=== PATIENT | male | born 1970 | race Caucasian/White ===

== ENCOUNTER 2023-05-17 08:04 | Emergency (ER) | payer BC ==
[2023-05-17 08:38] LABS: Absolute Lymphocytes (CBC) 1.7 K/uL (0.7-4.9); Hematocrit 47.4 % (39.6-49.0); MCV 93.8 fL (80-100); MPV 8.2 fL (7.6-11.3); RBC Red Blood Cell Count 5.06 M/uL (4.33-5.43)
[2023-05-17 08:48] LABS: Albumin 3.8 g/dL (3.4-5.0); Potassium 3.7 mEq/L (3.5-5.1); Protein, Total 7.2 g/dL (6.4-8.2)
--- NOTE | 2023-05-17 09:54 | RAD REPORT ---
EXAM DESCRIPTION: US - Abdomen Exam Limited - 05/17/2023 9:15 am CLINICAL HISTORY: Abdominal pain. COMPARISON: None. FINDINGS: Small echogenic structure gallbladder neck. Definite shadowing not seen. Small to moderate amount of gallbladder sludge The biliary tree is normal caliber. Mild gallbladder distention IMPRESSION: Small to moderate amount of gallbladder sludge. Small echogenic structure the gallbladder neck. This could represent a stone which did not shadow sec ondary to a combination of body habitus and small size. Mild gallbladder distention
[2023-05-17 10:11] LABS: Specific Gravity 1.025 (1.005-1.030); Urine Bacteria None Seen /HPF (<20); Urine Bilirubin NEGATIVE (Negative); Urine Blood Negative (Negative); Urine Clarity Clear (Clear); Urine Color Light-Yellow (Yellow); Urine Glucose NEGATIVE (Negative); Urine Mucus Slight /HPF (None Seen); Urine Protein TRACE (Negative); Urine RBC <5 /HPF (None Seen); Urine Urobilinogen Normal (Normal); Urine pH 6.5 (5.0-7.0)
--- NOTE | 2023-05-17 10:21 | EDPHYS ---
Physician Documentation [facility] Name: Zaid Yost Age: 52 yrs Sex: Male : 1970 Arrival Date: 05/17/2023 Time: 08:04 Bed 4 Private MD: ED Physician Neptali Luevano HPI: 05/17 08:46 This 52 yrs old Male presents to ER via Ambulatory with complaints of Abdominal Pain. sp3 08:46 52-year-old male with no significant past medical history, obesity who presents today sp3 ED with chief complaint right upper quadrant abdominal pain with a maximum of 4/10 intensity over the last 48 hours. He also reports increased belching and diaphoresis upon exertion. No prior cardiac history and he denies chest pain or shortness of breath. On review of systems, he denies fever, headache, neck pain, back pain, lower abdominal pain, vomiting or diarrhea, rash, known sick contacts, possible bad food, or any other signs or symptoms on ROS at this time.. Historical: - Allergies: 08:14 No Known Allergies; aa5 - Home Meds: 08:14 None [Active]; aa5 - PMHx: 08:14 None; aa5 - PSHx: 08:14 Appendectomy; aa5 - Immunization history:: Adult Immunizations unknown. - Social history:: Smoking status: Patient denies any tobacco usage or history of. ROS: 08:47 Constitutional: Negative for fever, chills, and weight loss, Eyes: Negative for injury, sp3 pain, redness, and discharge, ENT: Negative for injury, pain, and discharge, Neck: Negative for injury, pain, and swelling, Cardiovascular: Negative for chest pain, palpitations, and edema, Respiratory: Negative for shortness of breath, cough, wheezing, and pleuritic chest pain, Back: Negative for injury and pain, MS/Extremity: Negative for injury and deformity, Skin: Negative for injury, rash, and discoloration, Neuro: Negative for headache, weakness, numbness, tingling, and seizure, Psych: Negative for depression, anxiety, suicide ideation, homicidal ideation, and hallucinations. 08:47 All other systems are negative. Exam: 08:47 Constitutional: This is a well developed, well nourished patient who is awake, alert, sp3 and in no acute distress. Head/Face: Normocephalic, atraumatic. Eyes: Pupils equal round and reactive to light, extra-ocular motions intact. Lids and lashes normal. Conjunctiva and sclera are non-icteric and not injected. Cornea within normal limits. Periorbital areas with no swelling, redness, or edema. Neck: Trachea midline, no thyromegaly or masses palpated, and no cervical lymphadenopathy. Supple, full range of motion without nuchal rigidity, or vertebral point tenderness. No Meningismus. Chest/axilla: Normal chest wall appearance and motion. Nontender with no deformity. No lesions are appreciated. Cardiovascular: Regular rate and rhythm with a normal S1 and S2. No gallops, murmurs, or rubs. Normal PMI, no JVD. No pulse deficits. Respiratory: Lungs have equal breath sounds bilaterally, clear to auscultation and percussion. No rales, rhonchi or wheezes noted. No increased work of breathing, no retractions or nasal flaring. Abdomen/GI: Soft, non-tender, with normal bowel sounds. No distension or tympany. No guarding or rebound. No evidence of tenderness throughout. Back: No spinal tenderness. No costovertebral tenderness. Full range of motion. Skin: Warm, dry with normal turgor. Normal color with no rashes, no lesions, and no evidence of cellulitis. MS/ Extremity: Pulses equal, no cyanosis. Neurovascular intact. Full, normal range of motion. Neuro: Awake and alert, GCS 15, oriented to person, place, time, and situation. Cranial nerves II-XII grossly intact. Motor strength 5/5 in all extremities. Sensory grossly intact. Cerebellar exam normal. Normal gait. Psych: Awake, alert, with orientation to person, place and time. Behavior, mood, and affect are within normal limits. 08:47 ECG was reviewed by the Attending Physician. EKG demonstrates normal sinus rhythm at 87 bpm with normal intervals, normal QRS, normal axis, nonspecific diffuse ST/T-segment changes with inverted T waves inferiorly without any evidence of acute ischemia. Vital Signs: 08:10 BP 159 / 92; Pulse 90; Resp 18 S; Temp 97.1(TE); Pulse Ox 96% on R/A; Weight 161.03 kg aa5 (R); Height 6 ft. 7 in. (R); 09:13 BP 153 / 83; Pulse 73; Resp 19 S; Pulse Ox 93% on R/A; kc6 10:13 BP 134 / 86; Pulse 88; Resp 19 S; Pulse Ox 93% on R/A; kc6 08:10 Body Mass Index 39.99 (161.03 kg, 200.66 cm) aa5 MDM: 08:21 Patient medically screened. sp3 08:48 Data reviewed: vital signs, nurses notes, lab test result(s), EKG, radiologic studies. sp3 ED course: 52-year-old male with vague symptoms right upper quad abdominal pain that are now fully resolved. Differential diagnosis includes biliary pathology including cholelithiasis, cholecystitis, pancreatitis, and a lower extent cardiac pathology including ACS. EKG demonstrates no acute abnormalities. Will assess with laboratory values including a troponin and a right upper quadrant ultrasound. No medication intervention indicated as patient is not having any pain currently.. 10:19 ED course: Discussed ultrasound results with patient including probability of future sp3 cholelithiasis and cholecystitis. Current sludge demonstrates no acute pathology with no gallbladder wall thickening or pericholecystic fluid. LFTs are normal including biliary labs. WBC is also normal. I also educated patient on prediabetes as his blood sugar was at 167. Also counseled patient on weight loss. Patient to follow-up with his PCP for further care.. 05/17 08:21 Order name: CBC with Diff; Complete Time: 10:15 05/17 08:21 Order name: CMP; Complete Time: 10:15 05/17 08:21 Order name: Lipase; Complete Time: 10:05/17 08:21 Order name: Urinalysis w/ reflexes; Complete Time: 10:05/17 08:38 Order name: Troponin High Sensitivity; Complete Time: 10:05/17 08:38 Order name: US Abdomen Limited: RUQ / GB; Complete Time: 10:15 05/17 08:38 Order name: EKG; Complete Time: 08:38 3 05/17 08:21 Order name: IV Saline Lock; Complete Time: 08:22 3 05/17 08:21 Order name: Labs collected and sent; Complete Time: 08: 3 05/17 08:38 Order name: EKG - Nurse/Tech; Complete Time: 08:45 sp3 Administered Medications: No medications were administered Disposition Summary: 05/17/23 10:20 Discharge Ordered Location: Home sp3 Condition: Stable sp3 Diagnosis - Abdominal pain, gallbladder sludge sp3 Discharge Instructions: - Discharge Summary Sheet sp3 - Gallbladder Eating Plan sp3 Forms: - Medication Reconciliation Form sp3 - Thank You Letter sp3 - Antibiotic Education sp3 - Prescription Opioid Use sp3 Signatures: Dispatcher [employer] Ly Reno RN RN aa5 Neptali Luevano MD MD sp3 Corrections: (The following items were deleted from the chart) 08:47 08:22 Test, Urine+[id number].LAB.BRZ ordered. EDMS EDMS
--- NOTE | 2023-05-17 10:21 | ER ---
Nurse's Notes [facility] Name: Zaid Yost Age: 52 yrs Sex: Male : 1970 Arrival Date: 05/17/2023 Time: 08:04 Bed 4 Private MD: Diagnosis: Abdominal pain, gallbladder sludge Presentation: 05/17 08:10 Chief complaint: Patient states: right sided abd pain x 2 days ago, reports some nausea aa5 and vomiting. 08:10 Coronavirus screen: At this time, the client does not indicate any symptoms associated aa5 with coronavirus-19. Ebola Screen: Patient denies travel to an Ebola-affected area in the 21 days before illness onset. Initial Sepsis Screen: Does the patient meet any 2 criteria? No. Patient's initial sepsis screen is negative. Does the patient have a suspected source of infection? No. Patient's initial sepsis screen is negative. Risk Assessment: Do you want to hurt yourself or someone else? Patient reports no desire to harm self or others. Onset of symptoms was April 2023. 08:10 Acuity: PEPE 3 aa5 08:10 Method Of Arrival: Ambulatory aa5 Historical: - Allergies: 08:14 No Known Allergies; aa5 - Home Meds: 08:14 None [Active]; aa5 - PMHx: 08:14 None; aa5 - PSHx: 08:14 Appendectomy; aa5 - Immunization history:: Adult Immunizations unknown. - Social history:: Smoking status: Patient denies any tobacco usage or history of. Screenin:20 [facility] ED Fall Risk Assessment (Adult) History of falling in the last 3 months, kc6 including since admission No falls in past 3 months (0 pts) Confusion or Disorientation No (0 pts) Intoxicated or Sedated No (0 pts) Impaired Gait No (0 pts) Mobility Assist Device Used No (0 pt) Altered Elimination No (0 pt) Score/Fall Risk Level 0 - 2 = Low Risk Oriented to surroundings, Maintained a safe environment, Educated pt \T\ family on fall prevention, incl call for assistance when getting out of bed, Assessed \T\ reinforced patient's understanding of fall precautions, Hourly rounding (assess needs \T\ fall precautionary measures) done. Abuse screen: Denies threats or abuse. Denies injuries from another. Nutritional screening: No deficits noted. Tuberculosis screening: No symptoms or risk factors identified. Assessment: 08:18 General: Appears in no apparent distress. comfortable, Behavior is calm, cooperative, kc6 appropriate for age. Pain: Complains of pain in right upper quadrant and right lower quadrant Pain does not radiate. Pain currently is 4 out of 10 on a pain scale. Quality of pain is described as aching, dull, Is continuous. Neuro: Level of Consciousness is awake, alert, obeys commands, Oriented to person, place, time, situation, Appropriate for age. Respiratory: Airway is patent Trachea midline Respiratory effort is even, unlabored, Respiratory pattern is regular, symmetrical. GI: Abdomen is round non-distended, Bowel sounds present X 4 quads. Abd is soft X 4 quads Abdomen is tender to palpation in right upper quadrant and right lower quadrant Reports nausea, Patient currently denies diarrhea, vomiting. : No signs and/or symptoms were reported regarding the genitourinary system. EENT: No signs and/or symptoms were reported regarding the EENT system. Derm: No signs and/or symptoms reported regarding the dermatologic system. Skin is intact, Skin is pink, warm \T\ dry. Musculoskeletal: No signs and/or symptoms reported regarding the musculoskeletal system. Circulation, motion, and sensation intact. Capillary refill < 3 seconds, Range of motion: intact in all extremities. 09:13 Reassessment: Patient appears in no apparent distress at this time. No changes from kc6 previously documented assessment. Patient and/or family updated on plan of care and expected duration. Pain level reassessed. Patient is alert, oriented x 3, equal unlabored respirations, skin warm/dry/pink. 10:07 Reassessment: Patient appears in no apparent distress at this time. No changes from kc6 previously documented assessment. Patient and/or family updated on plan of care and expected duration. Pain level reassessed. Patient is alert, oriented x 3, equal unlabored respirations, skin warm/dry/pink. Vital Signs: 08:10 BP 159 / 92; Pulse 90; Resp 18 S; Temp 97.1(TE); Pulse Ox 96% on R/A; Weight 161.03 kg aa5 (R); Height 6 ft. 7 in. (R); 09:13 BP 153 / 83; Pulse 73; Resp 19 S; Pulse Ox 93% on R/A; kc6 10:13 BP 134 / 86; Pulse 88; Resp 19 S; Pulse Ox 93% on R/A; kc6 08:10 Body Mass Index 39.99 (161.03 kg, 200.66 cm) aa5 ED Course: 08:05 Patient arrived in ED. im 08:10 Adrianne Walter, RN is Primary Nurse. kc6 08:10 Arm band placed on. aa5 08:14 Neptali Luevano MD is Attending Physician. sp3 08:18 Triage completed. aa5 08:20 Patient has correct armband on for positive identification. Bed in low position. Call kc6 light in reach. Side rails up X 1. 08:20 Inserted saline lock: 20 gauge in left antecubital area, using aseptic technique. Blood kc6 collected. 09:10 US Abdomen Limited: RUQ / GB In Process Unspecified. EDMS 10:02 Urinalysis w/ reflexes Sent. em1 11:08 No provider procedures requiring assistance completed. IV discontinued, intact, kc6 bleeding controlled, No redness/swelling at site. Pressure dressing applied. Administered Medications: No medications were administered Medication: 11:08 VIS not applicable for this client. kc6 Outcome: 10:20 Discharge ordered by . sp3 11:08 Discharged to home ambulatory. kc6 11:08 Condition: stable 11:08 Discharge instructions given to patient, Instructed on discharge instructions, follow up and referral plans. Demonstrated understanding of instructions, follow-up care. 11:08 Patient left the ED. kc6 Signatures: Dispatcher [employer] EDNJ Dave Stevenson em1 Ly Young RN RN aa5 Neptali Luevano MD MD sp3 Adrianne Walter, LISA RN kc6 Rima Carter im
[2023-05-17 11:15] VITALS: TEMP 97.1
[2023-05-17 11:17] VITALS: O2SAT 93
[2023-05-17 11:18] VITALS: BP 134/86
--- NOTE | 2023-05-19 19:17 | EKG ---
Test Date: 2023-05-17 Test Time: 08:42:59 Hide Buffer: CALLIE MEASUREMENT RESULTS: Intervals: Rate: 87 NH: 136 QRSD: 88 QT: 378 QTc: 454 [place]: P: 17 NH: 136 QRS: 53 T: 5 INTERPRETIVE STATEMENTS: Normal sinus rhythm Low voltage QRS Borderline ECG No previous ECG available for comparison Electronically Signed On 05-19-23 19:11:58 CDT by Saurabh Washburn
== END 2023-05-17 11:08 | disposition home or self-care (01) ==
LOC: ER 08:04
DX: K82.9 Disease of gallbladder, unspecified (principal)
CPT/HCPCS: 36415; 76705; 80053; 81001; 83690; 84484; 85025; 93005; 99284